=== PATIENT | female | born 1995 | race Caucasian/White ===

== ENCOUNTER 2024-03-09 10:13 | Emergency (ER) | payer BC ==
[~2024-03-09] VITALS: Ht 167.6 cm; Wt 125.4 kg
[2024-03-09] MEDS ORDERED: ZOLOFT100 MG PO (10:24)
[2024-03-09] MEDS ORDERED: VRAYLAR3 MG PO (10:24)
[2024-03-09] MEDS ORDERED: SERTRALINE HCL 100 MG TAB PO SCH (12:45)
[2024-03-09 13:04] LABS: BILIRUBIN, URINE NEGATIVE (negative); BLOOD/HGB, URINE NEGATIVE (Negative); KETONE, URINE NEGATIVE (Negative); LEUK ESTERASE, URINE NEGATIVE (negative); NITRITE, URINE NEGATIVE (negative); PH, URINE 5.5 (5-7)
[2024-03-09 13:09] LABS: BACTERIA, URINE NONE SEEN /hpf (negative); CASTS, URINE NONE SEEN \\lpf; COLLECTION TYPE, URINE CLEAN CATCH; CRYSTALS, URINE NONE SEEN (0-1+); EPITHELIAL CELLS, URINE SQUAMOUS 1+ /lpf (0-1+); RED BLOOD CELLS, URINE 0-1 /hpf (0-5); REFLEX CULTURE, URINE No (No)
[2024-03-09 13:28] LABS: EOSINOPHILS 1.1 % (0-6); HEMATOCRIT 41.8 % (35.0-50.0); HEMOGLOBIN 13.4 g/dL (12.0-18.0); LYMPHOCYTES 22.6 % (24-44); MCH 24.3 (27-36); MCHC 32.1 g/dl (30-36); MCV 75.6 fl (81-99); MONOCYTES 4.8 % (0-12); NEUTROPHILS 70.5 % (39-80); PLATELET COUNT 311 K/uL (140-440); RBC 5.52 M/ul (4.3-5.7); RDW 15.8 (10.5-15.0)
[2024-03-09 13:29] LABS: AMPHETAMINES, URINE NEGATIVE (NEGATIVE); BARBITURATES, URINE NEGATIVE (NEGATIVE); BENZODIAZEPINE, URINE NEGATIVE (NEGATIVE); BUPRENORPHINE, URINE NEGATIVE (NEGATIVE); CANNABINOID, URINE POSITIVE (NEGATIVE); COCAINE, URINE NEGATIVE (NEGATIVE); ECSTASY, URINE NEGATIVE (NEGATIVE); FENTANYL, URINE NEGATIVE (NEGATIVE); METHADONE, URINE NEGATIVE (NEGATIVE); OPIATES, URINE NEGATIVE (NEGATIVE); OXYCODONE, URINE NEGATIVE (NEGATIVE); PHENCYCLIDINE, URINE NEGATIVE (NEGATIVE)
[2024-03-09 13:41] LABS: PREGNANCY TEST, URINE NEGATIVE (NEG)
[2024-03-09 13:55] LABS: ACETAMINOPHEN 0 ug/mL (10-30); ALBUMIN 3.8 g/dL (3.4-5.0); ALBUMIN/GLOBULIN RATIO 1.06 (1.1-2.4); ALKALINE PHOSPHATASE 100 U/L (46-116); ALT (SGPT) 24 U/L (14-59); ANION GAP 11.9 (7-21); AST (SGOT) 8 U/L (15-37); BILIRUBIN, TOTAL 0.3 ng/dL (0.2-1.0); CALCIUM 8.8 mg/dL (8.5-10.1); CARBON DIOXIDE 27 mmol/L (21-32); CHLORIDE 102 mmol/L (98-107); CREATININE, SERUM 0.67 mg/dL (0.55-1.02); GLOMERULAR FILTRATION RATE,EST 121 mL/min (>60); POTASSIUM 3.9 mmol/L (3.5-5.1); PROTEIN, TOTAL 7.4 g/dL (6.4-8.2); SALICYLATE 1.4 mg/dL (2.8-20.0); UREA NITROGEN 13 mg/dL (7-18)
[2024-03-10] MEDS ORDERED: CYCLOBENZAPRINE HCL 10 MG TAB PO ONE (04:00)
[2024-03-10] MEDS ORDERED: IBUPROFEN 600 MG TAB PO ONE (04:00)
[2024-03-10] MEDS ORDERED: VRAYLAR3 MG PO (11:06)
[2024-03-10] MEDS ORDERED: ZOLOFT50 MG PO (11:06)
[2024-03-10 11:17] VITALS: BP 125/86
== END 2024-03-10 11:19 | disposition home or self-care (01) ==
LOC: ED 10:13
PROVIDERS: Emergency Medicine
DX: F31.9 Bipolar disorder, unspecified (principal); Z79.899 Other long term (current) drug therapy
CPT/HCPCS: 36415; 80053; 80307; 81001; 84443; 84703; 85025; 99284; A9270; G0480